=== PATIENT | male | born 1960 | race Caucasian/White ===

== ENCOUNTER → 2021-03-29 10:37 | Outpatient (BNVA) | payer OTHER, SELFPAY | PROVIDERS: PCP Internal Medicine; Visit Provider Hospitalist ==

== ENCOUNTER → 2022-04-03 08:08 | Outpatient (BNVA) | payer OTHER, SELFPAY | PROVIDERS: PCP Internal Medicine; Visit Provider Hospitalist | DX: J96.10 Chronic respiratory failure, unspecified whether with hypoxia or hypercapnia (principal); I50.9 Heart failure, unspecified; G47.33 Obstructive sleep apnea (adult) (pediatric); J96.11 Chronic respiratory failure with hypoxia; F17.200 Nicotine dependence, unspecified, uncomplicated; J41.0 Simple chronic bronchitis | CPT/HCPCS: 94618 ==

== ENCOUNTER → 2022-04-19 15:24 | Outpatient (BNVA) | payer OTHER, SELFPAY | PROVIDERS: PCP Internal Medicine; Visit Provider Internal Medicine Cardiovascular Disease | DX: Z13.89 Encounter for screening for other disorder (principal) ==

== ENCOUNTER → 2022-07-02 12:49 | Outpatient (BNVA) | payer OTHER, SELFPAY | PROVIDERS: PCP Internal Medicine; Referring Provider Internal Medicine; Visit Provider Internal Medicine Cardiovascular Disease | DX: I48.91 Unspecified atrial fibrillation (principal); I50.9 Heart failure, unspecified | CPT/HCPCS: 93005 ==

== ENCOUNTER → 2022-07-23 09:38 | Outpatient (BNVA) | payer OTHER, SELFPAY | PROVIDERS: PCP Internal Medicine; Visit Provider Hospitalist | DX: Z13.89 Encounter for screening for other disorder (principal) ==

== ENCOUNTER → 2022-10-22 10:21 | Outpatient (BNVA) | payer OTHER, SELFPAY | PROVIDERS: PCP Internal Medicine; Visit Provider Hospitalist ==

== ENCOUNTER 2023-05-17 08:40 | Outpatient (AMB) | payer SELFPAY ==
[2023-05-17 08:45] VITALS: BP 134/78; PULSE 97; O2SAT 95; BMI 50.2
--- NOTE | 2023-05-17 08:45 | A.OFFVIS_ITS ---
Intake Vital Signs 05/17/23 08:45 Height 6 ft 3 in Weight 402 lb BMI 50.2 BP 134/78 Blood Pressure Location Lt brachial Position Sitting Pulse 97 Pulse Source Pulse Oximeter Pulse Oximetry (%) 95 Oxygen Delivery Method Room Air Intake Visit Reasons: Obstructive sleep apnea Accompanied by: Spouse Allergies No Known Allergies Allergy (Verified 05/17/23 08:45) HPI HPI Comments History of Present Illness Details ? The patient is a 63-year-old man with a known history of COPD tobacco dependency and obstructive sleep apnea. He has been using his BiPAP which is set at right now 11/02. The BiPAP therapy does not appear to be working for him well. Initially when he puts it on he does not feel like he is getting enough pressure. Also, he had been using oxygen along with the BiPAP because of hypoxia and for some reason is concentrated has not been working. More recently started developing some issues with worsening cough and shortness of breath. 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 Currently is wearing a Holter monitor. He has been having more shortness of breath moderate severity. Even come in short distances he needs to take a break. He still smoking unfortunately. Sometimes she smokes about 1-2 packs a day. We talked about smoking cessation and possibly switching over to a nicotine alternative. He is willing to try the Nicotrol inhaler at this time. He can start by alternating and hopefully weaning off the cigarettes. He understands the harms at the cigarettes a doing to his heart and lungs at this time. He we did look at the BiPAP. The download demonstrates that his AHI down to 0.6. He has been using more than 7 hours a night. The therapy has been affecting beneficial. I had to come off the ramp because does was causing the problems. Will have to perform an overnight oximetry once he goes back in the oxygen and while on the BiPAP to make sure he is getting adequate oxygenation. In addition to that he did go for 6 minutes walk test any did desaturate down to 86% on room air. He was then placed on 2 L nasal cannula improving his pulse ox to 95% at rest and 94% with activity. He is agreeable to start oxygen supplementation with activity and will continue using the oxygen supplementation at nighttime. 07/23/2022 the patient is here for pulmonary follow-up visit. He is doing a lot better. The patient did follow-up with cardiology several weeks ago and was found to have AFib with rapid ventricular response and congestive heart failure. The patient refused to go to the ER. However, after having that awakening the patient realized that he needs to take his medications as prescribed. He has been taking his diuretic in his rate controlling any agent. He is also using his oxygen. He is using his noninvasive ventilator. Overall he is in a better state of health. He still has a lot of work to do but overall reassuring. Today's vital signs were stable. He is comfortable on room air. The patient does continue to use oxygen while sleeping on the noninvasive ventilator. He also start using the Eliquis as prescribed which is reassuring as well. He does have a colonoscopy scheduled for sometime in October. He may have to come in September for a preop evaluation. 10/22/2022 the patient is here for preoperative evaluation. The patient was in her usual state health until recently when to [place] to camp with cam for her unfortunate that is when the significant bad air quality from cannula that was taking place in therefore he was exposed significant bad air quality and pollution resulting worsening shortness of breath and wheezing. 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 [place] started developing some sinus pressure buildup and congestion. He went to see primary care doctor placed on prednisone and antibiotics for appeared to be sinusitis. He initially felt a little better but now worsening up again. Now the patient is scheduled to undergo a colonoscopy in a couple weeks. Will go ahead and treat him again for sinusitis to try to clear up any residual issues. In the meantime his respiratory status is stable. He is responding well to the current medications. As far as his chronic respiratory failure he has been tolerating the noninvasive ventilator very well. He does use it every night. The patient is scheduled for colonoscopy. He is wondering about the risks and benefits. At this point the patient has not had a colonosco py yet in therefore, will be important to do so. This is a good window since the patient overall is doing better from a respiratory status. Therefore, the patient should continue with the plans for screening colonoscopy. He does have increased risk for perioperative or prior procedure pulmonary complications which includes, hypoxia, atelectasis, pneumonia. To bed is decreased perioperative risk from a pulmonary standpoint would recommend using propofol for deep sedation and using an LMA for airway protection. Would avoid general anesthesia and intubation if possible. The patient should also have end-tidal CO2 monitoring at all times. 05/17/2023 the patient is here for pulmonary follow-up visit. Overall the patient has been doing better. He has been using his noninvasive ventilator at nighttime with 4.5 L of oxygen. The therapy has been affecting beneficial. Recently he got updated machine. In addition to that he continues with respiratory therapy. Has not required any prednisone. Typically does not have to use his rescue inhaler more than twice a week. Now is working on weight loss. He is looking at medical weight loss with injectables. I did provide him a letter about the importance of helping him with his weight loss as it would improve his respiratory condition. The patient also was told that he had elevated red blood cell count. He may have some secondary polycythemia secondary to his hypoxia. Therefore, will go ahead and have him get an overnight oximetry while on his on IV on 4.5 L to see if this is adequate oxygen. He is going to have a follow-up with Hematology to further address the polycythemia. [facility] Medical History CHF (congestive heart failure) Chronic respiratory failure COPD (chronic obstructive pulmonary disease) PORTILLO (obstructive sleep apnea) Tobacco dependence Social History Patient Tobacco Use Status: Current everyday Tobacco user Tobacco use type: Cigarette Years Smoked: 20 years Review of Systems Const Denies night sweats, Denies snoring, Denies stops breathing during sleep and Reports weight loss ENT Denies change in voice, Denies lip swelling, Denies mouth pain, Reports nasal congestion, Reports nasal discharge, Reports nasal obstruction, Reports post nasal drip, Reports sinus pressure and Denies tongue swelling Card Denies chest pain, Denies palpitations, Denies dyspnea and Reports dyspnea on exertion Resp Reports cough, Denies dyspnea, Reports dyspnea on exertion and Denies snoring GI Denies abdominal pain Musc Denies no additional complaints Neuro Denies Neuro-related abnormal movements Psych Denies no additional complaints Endo Denies palpitations Tank/Lymph Denies easy bleeding and Denies lymphadenopathy Aller/Immun Denies lip swelling and Denies tongue swelling Physical Exam Vital Signs: Last Vital Signs Pulse 97 05/17/23 08:45 BP 134/78 05/17/23 08:45 Pulse Ox 95 05/17/23 08:45 Oxygen Delivery Method Room Air 05/17/23 08:45 BMI result Body Mass Index 50.2 Const General: alert HEENT General nose exam: Abnormal mucous membranes and turbinates present erythematous, Nasal discharge present and no epistaxis Neck Neck: Yes normal visual inspection, Yes full ROM and Yes no lymphadenopathy Chest Chest palpation & inspection: normal inspection of the chest Resp Effort & Inspection: normal respiratory effort Auscultation: no crackles and diminished lung sounds Cardio Rate: regular rate Rhythm: regular rhythm Heart sounds: S1 normal heart sound present and S2 normal heart sound present GI Palpation (GI): Soft to palpation and nontender Auscultation: normal bowel sounds Skin General skin exam: rashes and/or lesions noted Assessment & Plan Assessment & Plan (1) PORTILLO (obstructive sleep apnea): Code(s): G47.33 - Obstructive sleep apnea (adult) (pediatric) (2) Chronic respiratory failure: Code(s): J96.10 - Chronic respiratory failure, unspecified whether with hypoxia or hypercapnia Qualifiers: Respiratory failure complication: hypoxia Qualified Code(s): J96.11 - Chronic respiratory failure with hypoxia (3) Tobacco dependence: Code(s): F17.200 - Nicotine dependence, unspecified, uncomplicated (4) COPD (chronic obstructive pulmonary disease): Code(s): J44.9 - Chronic obstructive pulmonary disease, unspecified Qualifiers: COPD type: chronic bronchitis Chronic bronchitis type: simple Qualified Code(s): J41.0 - Simple chronic bronchitis (5) CHF (congestive heart failure): Code(s): I50.9 - Heart failure, unspecified Qualifiers: Heart failure type: unspecified Heart failure chronicity: chronic Qualified Code(s): I50.9 - Heart failure, unspecified Plan continue diuresis as tolerated Continue NIV with 4.5L oxygen Requesting overnight oximetry on the current above setting continue Trelegy DONNY as needed rate control continue eliquis BID weight management F/U 6 months Orders: Orders Overnight Pulse Oximetry Today J96.10 - Chronic respiratory failure, unspecified whether with hypoxia or hypercapnia Quality Reporting (2019) Adult ([facility] 138/06/20/68) Smoking risk assessment performed?: Yes Patient Tobacco Use Status: Current everyday Tobacco user Coding Level of Care Code Est Pt Level 4 (77448) Diagnoses PORTILLO (obstructive sleep apnea) G47.33 Chronic respiratory failure with hypoxia J96.11 Respiratory failure complication: hypoxia Tobacco dependence F17.200 Simple chronic bronchitis J41.0 COPD type: chronic bronchitis Chronic bronchitis type: simple Chronic congestive heart failure, unspecified heart failure type I50.9 Heart failure type: unspecified Heart failure chronicity: chronic Time Spent (min) 18
== END 2023-05-17 09:13 | disposition home or self-care (01) ==
PROVIDERS: PCP Internal Medicine; Visit Provider Hospitalist
DX: G47.33 Obstructive sleep apnea (adult) (pediatric) (principal); J96.11 Chronic respiratory failure with hypoxia; F17.200 Nicotine dependence, unspecified, uncomplicated; J41.0 Simple chronic bronchitis; I50.9 Heart failure, unspecified
CPT/HCPCS: 99214

== ENCOUNTER → 2023-05-17 08:40 | Outpatient (BNVA) | payer OTHER, SELFPAY | PROVIDERS: PCP Internal Medicine; Visit Provider Hospitalist ==

== ENCOUNTER 2023-11-18 08:18 | Outpatient (AMB) | payer OTHER, SELFPAY ==
--- NOTE | 2023-11-18 08:20 | MHC.OFFVIS ---
Vital Signs 11/18/23 08:22 Height 6 ft 3 in Weight 372 lb BMI 46.5 Pulse 90 Pulse Source Pulse Oximeter Pulse Oximetry (%) 93 Oxygen Delivery Method Room Air Intake Visit Reasons: Obstructive sleep apnea Allergies No Known Allergies Allergy (Verified 11/18/23 08:23) HPI Comments Details: ? The patient is a 63-year-old man with a known history of COPD tobacco dependency and obstructive sleep apnea. He has been using his BiPAP which is set at right now 11/02. The BiPAP therapy does not appear to be working for him well. Initially when he puts it on he does not feel like he is getting enough pressure. Also, he had been using oxygen along with the BiPAP because of hypoxia and for some reason is concentrated has not been working. More recently started developing some issues with worsening cough and shortness of breath. 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 Currently is wearing a Holter monitor. He has been having more shortness of breath moderate severity. Even come in short distances he needs to take a break. He still smoking unfortunately. Sometimes she smokes about 1-2 packs a day. We talked about smoking cessation and possibly switching over to a nicotine alternative. He is willing to try the Nicotrol inhaler at this time. He can start by alternating and hopefully weaning off the cigarettes. He understands the harms at the cigarettes a doing to his heart and lungs at this time. He we did look at the BiPAP. The download demonstrates that his AHI down to 0.6. He has been using more than 7 hours a night. The therapy has been affecting beneficial. I had to come off the ramp because does was causing the problems. Will have to perform an overnight oximetry once he goes back in the oxygen and while on the BiPAP to make sure he is getting adequate oxygenation. In addition to that he did go for 6 minutes walk test any did desaturate down to 86% on room air. He was then placed on 2 L nasal cannula improving his pulse ox to 95% at rest and 94% with activity. He is agreeable to start oxygen supplementation with activity and will continue using the oxygen supplementation at nighttime. 07/23/2022 the patient is here for pulmonary follow-up visit. He is doing a lot better. The patient did follow-up with cardiology several weeks ago and was found to have AFib with rapid ventricular response and congestive heart failure. The patient refused to go to the ER. However, after having that awakening the patient realized that he needs to take his medications as prescribed. He has been taking his diuretic in his rate controlling any agent. He is also using his oxygen. He is using his noninvasive ventilator. Overall he is in a better state of health. He still has a lot of work to do but overall reassuring. Today's vital signs were stable. He is comfortable on room air. The patient does continue to use oxygen while sleeping on the noninvasive ventilator. He also start using the Eliquis as prescribed which is reassuring as well. He does have a colonoscopy scheduled for sometime in October. He may have to come in September for a preop evaluation. 10/22/2022 the patient is here for preoperative evaluation. The patient was in her usual state health until recently when to [place] to camp with cam for her unfortunate that is when the significant bad air quality from cannula that was taking place in therefore he was exposed significant bad air quality and pollution resulting worsening shortness of breath and wheezing. 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 [place] he started developing some sinus pressure buildup and congestion. He went to see primary care doctor placed on prednisone and antibiotics for appeared to be sinusitis. He initially felt a little better but now worsening up again. Now the patient is scheduled to undergo a colonoscopy in a couple weeks. Will go ahead and treat him again for sinusitis to try to clear up any residual issues. In the meantime his respiratory status is stable. He is responding well to the current medications. As far as his chronic respiratory failure he has been tolerating the noninvasive ventilator very well. He does use it every night. The patient is scheduled for colonoscopy. He is wondering about the risks and benefits. At this point the patient has not had a colonoscopy yet in therefore, will be important to do so. This is a good window since the patient overall is doing better from a respiratory status. Therefore, the patient should continue with the plans for screening colonoscopy. He does have increased risk for perioperative or prior procedure pulmonary complications which includes, hypoxia, atelectasis, pneumonia. To bed is decreased perioperative risk from a pulmonary standpoint would recommend using propofol for deep sedation and using an LMA for airway protection. Would avoid general anesthesia and intubation if possible. The patient should also have end-tidal CO2 monitoring at all times. 05/17/2023 the patient is here for pulmonary follow-up visit. Overall the patient has been doing better. He has been using his noninvasive ventilator at nighttime with 4.5 L of oxygen. The therapy has been affecting beneficial. Recently he got updated machine. In addition to that he continues with respiratory therapy. Has not required any prednisone. Typically does not have to use his rescue inhaler more than twice a week. Now is working on weight loss. He is looking at medical weight loss with injectables. I did provide him a letter about the importance of helping him with his weight loss as it would improve his respiratory condition. The patient also was told that he had elevated red blood cell count. He may have some secondary polycythemia secondary to his hypoxia. Therefore, will go ahead and have him get an overnight oximetry while on his on IV on 4.5 L to see if this is adequate oxygen. He is going to have a follow-up with Hematology to further address the polycythemia. 11/18/2023 the patient is here for a pulmonary follow-up visit. Patient better. The patient has been working on weight loss. He is motivated at this time. In the meantime unfortunately continues to smoke cigarettes. Smoking about 2 packs a day. The patient did talk to the primary care doctor in this point he is agreeable to taking part in the lung cancer screening program. Therefore will make a referral at this time. As far as his sleep he does use a noninvasive ventilator with good effect. He continues use the oxygen good effect as well. His mask and his supplies a arriving regularly through his [employer]. He is motivated in quitting. He is also going to try using the current gum for withdrawal symptoms. [facility] Medical History CHF (congestive heart failure) Chronic respiratory failure COPD (chronic obstructive pulmonary disease) PORTILLO (obstructive sleep apnea) Tobacco dependence Social History Patient Tobacco Use Status: Current everyday Tobacco user Tobacco use type: Cigarette Years Smoked: 20 years Review of Systems Const Denies night sweats, Denies snoring, Denies stops breathing during sleep and Reports weight loss ENT Denies change in voice, Denies lip swelling, Denies mouth pain, Reports nasal congestion, Reports nasal discharge, Reports post nasal drip and Denies tongue swelling Card Denies chest pain, Denies palpitations, Denies dyspnea and Reports dyspnea on exertion Resp Reports cough, Denies dyspnea, Reports dyspnea on exertion and Denies snoring GI Denies abdominal pain Musc Denies no additional complaints Neuro Denies Neuro-related abnormal movements Psych Denies no additional complaints Endo Denies palpitations Tank/Lymph Denies easy bleeding and Denies lymphadenopathy Aller/Immun Denies lip swelling and Denies tongue swelling Physical Exam Vital Signs: Last Vital Signs Pulse 90 11/18/23 08:22 Pulse Ox 93 11/18/23 08:22 Oxygen Delivery Method Room Air 11/18/23 08:22 BMI result Body Mass Index 46.5 Const General: alert HEENT General nose exam: Abnormal mucous membranes and turbinates present erythematous, Nasal discharge present and no epistaxis Neck Neck: Yes normal visual inspection, Yes full ROM and Yes no lymphadenopathy Chest Chest palpation & inspection: normal inspection of the chest Resp Effort & Inspection: normal respiratory effort Auscultation: no crackles and diminished lung sounds Cardio Rate: regular rate Rhythm: regular rhythm Heart sounds: S1 normal heart sound present and S2 normal heart sound present GI Palpation (GI): Soft to palpation and nontender Auscultation: normal bowel sounds Skin General skin exam: rashes and/or lesions noted Extrem General: Yes edema Quality Reporting (2019) Adult ([facility] ) Smoking risk assessment performed?: Yes Patient Tobacco Use Status: Current everyday Tobacco user Assessment & Plan Assessment & Plan (1) PORTILLO (obstructive sleep apnea): Code(s): G47.33 - Obstructive sleep apnea (adult) (pediatric) Category: Medical (2) Chronic respiratory failure: Code(s): J96.10 - Chronic respiratory failure, unspecified whether with hypoxia or hypercapnia Category: Medical Qualifiers: Respiratory failure complication: hypoxia Qualified Code(s): J96.11 - Chronic respiratory failure with hypoxia (3) Tobacco dependence: Code(s): F17.200 - Nicotine dependence, unspecified, uncomplicated Category: Medical (4) COPD (chronic obstructive pulmonary disease): Code(s): J44.9 - Chronic obstructive pulmonary disease, unspecified Category: Medical Qualifiers: COPD type: chronic bronchitis Chronic bronchitis type: simple Qualified Code(s): J41.0 - Simple chronic bronchitis (5) CHF (congestive heart failure): Code(s): I50.9 - Heart failure, unspecified Category: Medical Qualifiers: Heart failure chronicity: chronic Heart failure type: unspecified Qualified Code(s): I50.9 - Heart failure, unspecified Plan continue diuresis as tolerated Continue NIV with 4.5L oxygen, JL continue Trelegy DONNY as needed weight management referral to [facility] Tobacco cessation: nicorette gum F/U 6 months Orders: Referrals Lung Cancer Screening Referral F17.200 - Nicotine dependence, unspecified, uncomplicated Medications: New nicotine (polacrilex) (Nicorette) 4 mg buccal Q4H PRN 100 ea 7RF nicotine cravings 30 days Coding Level of Care Code Est Pt Level 4 (93599) Diagnoses PORTILLO (obstructive sleep apnea) G47.33 Chronic respiratory failure with hypoxia J96.11 Respiratory failure complication: hypoxia Tobacco dependence F17.200 Simple chronic bronchitis J41.0 COPD type: chronic bronchitis Chronic bronchitis type: simple Chronic congestive heart failure, unspecified heart failure type I50.9 Heart failure chronicity: chronic Heart failure type: unspecified Time Spent (min) 16
[2023-11-18 08:22] VITALS: PULSE 90; O2SAT 93; BMI 46.5
== END 2023-11-18 08:42 | disposition home or self-care (01) ==
PROVIDERS: PCP Internal Medicine; Visit Provider Hospitalist
DX: G47.33 Obstructive sleep apnea (adult) (pediatric) (principal); J96.11 Chronic respiratory failure with hypoxia; F17.200 Nicotine dependence, unspecified, uncomplicated; J41.0 Simple chronic bronchitis; I50.9 Heart failure, unspecified
CPT/HCPCS: 99214

== ENCOUNTER → 2023-11-18 08:18 | Outpatient (BNVA) | payer OTHER, SELFPAY | PROVIDERS: PCP Internal Medicine; Visit Provider Hospitalist ==

== ENCOUNTER 2023-12-27 09:33 | Outpatient (AMB) | payer OTHER, SELFPAY ==
--- NOTE | 2023-12-27 07:54 | A.OFFVIS_ITS ---
Intake Visit Reasons: Current Smoker Allergies No Known Allergies Allergy (Verified 11/18/23 08:23) HPI HPI Current Smoker: Details: Initial visit for this 63yo smoker with a 50+PYH. Patient has been smoking since age 16 for 47 years at 1-1.5ppd. . Denies marijuana use. Denies second hand smoke exposure. 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 . Denies known family history of lung cancer. Denies personal history of cancers. Denies chest CT in last year. . Denies recent travel outside the [place]. Denies recent respiratory illness or recent hospitalization for respiratory issues. Reports testing positive for COVID. Admits receiving COVID Vaccine. x2. . Denies fever, chills, new/worsening cough, hemoptysis, hoarseness or dysphagia. Denies significant chest pain, significant dyspnea or unintentional weight loss. Patient Lung Cancer Screening Questionnaire reviewed with patient by provider. . Shared Decision Making Completed. Patient meets criteria. Discussed in detail with patient, the risk vs benefit of LDCT screening. Patient consents to proceed with scan. Discussed smoking cessation. [facility] Medical History (Updated 12/27/23 @ 09:37 by Kaitlyn Pablo PA-C) Atrial fibrillation with rapid ventricular response CHF (congestive heart failure) Chronic respiratory failure COPD (chronic obstructive pulmonary disease) PORTILLO (obstructive sleep apnea) Nicotine dependence, cigarettes, uncomplicated Morbid obesity Surgical History (Updated 12/27/23 @ 09:40 by Kaitlyn Pablo PA-C) History of lithotripsy History of removal of laparoscopic gastric banding device History of tonsillectomy Social History (Updated 12/27/23 @ 09:37 by Kaitlyn Pablo PA-C) Patient Tobacco Use Status: Current everyday Tobacco user Tobacco use type: Cigarette Years Smoked: (onset 16yo, 1-1.5ppd x 47yrs, 50+PYH) Quality Reporting (2019) Adult (CMS 138/06/20/68) Smoking risk assessment performed?: Yes Patient Tobacco Use Status: Current everyday Tobacco user Assessment & Plan Assessment & Plan (1) Nicotine dependence, cigarettes, uncomplicated: Comment: (onset 16yo, 1-1.5ppd x 47yrs, 50+PYH) Code(s): F17.210 - Nicotine dependence, cigarettes, uncomplicated Category: Medical Plan: - SDM visit completed today in office. - Patient meets criteria for LDCT for lung cancer screening purposes and is asymptomatic. - Smoking cessation counseling offered. Patients can always call [phone]. - Will arrange for a LDCT scan of the chest for screening purposes at [facility]. - Risks, benefits, and alternatives were discussed in detail and the patient agrees to proceed. - Risks discussed include but are not limited to: radiation exposure, anxiety during testing and while awaiting results, false negatives, false positives and possibility of additional intervention such as further imaging or surgical procedures for benign disease. - Benefits are obviously detection of lung cancer at an early stage which can lead to improved outcomes. - Discussed the importance of screening program compliance with adherence to yearly LDCT scan as scheduled - or sooner interval scans for personalized screening regimen. - Discussed follow up plan. Our office will send a letter discussing results and if needed set up phone call and office visit based on CT findings. - Patient educated on results categorization and the management decisions for suspicious findings potentially found on the screening LDCT scan. Any patient with a Lung RADS score of 3 or 4 will be reviewed by a multidisciplinary team at [facility] to form a plan of action in regards to scan findings. - If further work up is warranted for a suspicious lung finding this will be followed by the Lung Cancer Screening program in conjunction with the Thoracic Surgery Department at [facility]. - A copy of the office note and LDCT will be sent to the patient's PCP - as well as documentation on any associated further plans of care. - Incidental findings on LDCT are the PCP's responsibility. These findings are indicated with an S finding on the LDCT Assessment. A note discussing the findings will be sent to the PCP who is then responsible for further management. - All questions answered.? Coding Level of Care Code Lung Cancer Screening G0296 Diagnoses Nicotine dependence, cigarettes, uncomplicated F17.210
== END 2023-12-27 09:43 | disposition home or self-care (01) ==
PROVIDERS: PCP Internal Medicine; Referring Provider Hospitalist; Visit Provider Physician Assistant Medical
DX: F17.210 Nicotine dependence, cigarettes, uncomplicated (principal)
CPT/HCPCS: G0296

== ENCOUNTER 2023-12-27 09:45 | Outpatient (REF) | payer OTHER, SELFPAY ==
--- NOTE | ~2023-12-27 | CT_ITS ---
EXAMINATION: CT LOW-DOSE SCREENING CHEST WITHOUT CONTRAST CLINICAL INFORMATION: Nicotine dependence, cigarettes, uncomplicated. The patient is a current smoker with a 98 pack-year history of smoking. COMPARISON: None available. TECHNIQUE: Multidetector volumetric CT imaging of the chest is performed on a Siemens SOMATOM Definition scanner without contrast using low dose technique. Additional 2D coronal and sagittal reformatted images and axial 3D maximum intensity projection (MIP) images are generated on the CT workstation. This CT examination was performed using dose optimization techniques as appropriate, variously including the following: *Automated exposure control *Adjustment of mA and/or kV according to patient size (this includes techniques or standardized protocols for targeted exams where dose is matched to indication/reason for exam; i.e. extremities or head) *Use of iterative reconstruction technique TOTAL EXAM DLP: 131 mGy-cm. CTDIvol: 3.81 mGy. FINDINGS: PULMONARY NODULES: No suspicious pulmonary nodules. LUNGS: Lungs bilaterally symmetrically expanded. Emphysema is present with a saber-sheath trachea. There is mild bronchial thickening without bronchiectasis. Bibasilar atelectasis is seen, right greater than left. No effusion or pneumothorax. Central airways patent. MEDIASTINUM: No mediastinal, hilar or axillary adenopathy or free fluid collection. CORONARY ARTERY CALCIFICATION: Severe. THYROID GLAND: Unremarkable to the extent seen. CARDIOVASCULAR STRUCTURES: There is mild cardiomegaly. No aortic aneurysm. Trace pericardial effusion. CHEST WALL/AXILLA: Unremarkable. UPPER ABDOMEN: Included portions of the solid organs in the upper abdomen unremarkable on noncontrast imaging. OSSEOUS STRUCTURES: No suspicious focal findings. Scoliosis with degenerative changes in the spine. CT/CT lung screening IMPRESSION: No findings seen suspicious for malignancy. ASSESSMENT: 1. Lung-RADS Category 1: Negative. There are no nodules or there are definitely benign nodules. N/A 2. Lung-RADS Category S: Negative. There are no clinically significant or potentially clinically significant findings not related to the lungs requiring urgent additional evaluation. RECOMMENDATION: Continued routine annual low-dose CT lung screening in 1 year is recommended. An order for CT CHEST LOW DOSE CANCER SCREENING ([id number]) can be placed. Electronically signed by: Jerardo Jensen MD 01/22/2024 12:37 PM EDT
== END 2023-12-27 09:46 | disposition home or self-care (01) ==
LOC: HO.CT 09:45
PROVIDERS: PCP Internal Medicine; Visit Provider Physician Assistant Medical
DX: Z12.2 Encounter for screening for malignant neoplasm of respiratory organs (principal); F17.210 Nicotine dependence, cigarettes, uncomplicated
CPT/HCPCS: 71271; G0296

== ENCOUNTER 2024-05-26 08:27 | Outpatient (AMB) | payer OTHER, SELFPAY ==
--- NOTE | 2024-05-26 08:29 | MHC.OFFVIS ---
Vital Signs 05/26/24 08:30 Height 6 ft 3 in Weight 364 lb 13.84 oz BMI 45.6 BP 130/88 Blood Pressure Location Rt brachial Position Sitting Pulse 72 Pulse Source Pulse Oximeter Pulse Oximetry (%) 96 Oxygen Delivery Method Room Air Intake Visit Reasons: Obstructive sleep apnea Allergies No Known Allergies Allergy (Verified 05/26/24 08:33) HPI Comments Details: ? The patient is a 64-year-old man with a known history of COPD tobacco dependency and obstructive sleep apnea. He has been using his BiPAP which is set at right now 11/02. The BiPAP therapy does not appear to be working for him well. Initially when he puts it on he does not feel like he is getting enough pressure. Also, he had been using oxygen along with the BiPAP because of hypoxia and for some reason is concentrated has not been working. More recently started developing some issues with worsening cough and shortness of breath. He was evaluated by his doctor and also patient access specialist found to have an it regular tachyarrhythmia. Currently is wearing a Holter monitor. He has been having more shortness of breath moderate severity. Even come in short distances he needs to take a break. He still smoking unfortunately. Sometimes she smokes about 1-2 packs a day. We talked about smoking cessation and possibly switching over to a nicotine alternative. He is willing to try the Nicotrol inhaler at this time. He can start by alternating and hopefully weaning off the cigarettes. He understands the harms at the cigarettes a doing to his heart and lungs at this time. He we did look at the BiPAP. The download demonstrates that his AHI down to 0.6. He has been using more than 7 hours a night. The therapy has been affecting beneficial. I had to come off the ramp because does was causing the problems. Will have to perform an overnight oximetry once he goes back in the oxygen and while on the BiPAP to make sure he is getting adequate oxygenation. In addition to that he did go for 6 minutes walk test any did desaturate down to 86% on room air. He was then placed on 2 L nasal cannula improving his pulse ox to 95% at rest and 94% with activity. He is agreeable to start oxygen supplementation with activity and will continue using the oxygen supplementation at nighttime. 07/23/2022 the patient is here for pulmonary follow-up visit. He is doing a lot better. The patient did follow-up with cardiology several weeks ago and was found to have AFib with rapid ventricular response and congestive heart failure. The patient refused to go to the ER. However, after having that awakening the patient realized that he needs to take his medications as prescribed. He has been taking his diuretic in his rate controlling any agent. He is also using his oxygen. He is using his noninvasive ventilator. Overall he is in a better state of health. He still has a lot of work to do but overall reassuring. Today's vital signs were stable. He is comfortable on room air. The patient does continue to use oxygen while sleeping on the noninvasive ventilator. He also start using the Eliquis as prescribed which is reassuring as well. He does have a colonoscopy scheduled for sometime in October. He may have to come in September for a preop evaluation. 10/22/2022 the patient is here for preoperative evaluation. The patient was in her usual state health until recently when to [place] to camp with cam for her unfortunate that is when the significant bad air quality from cannula that was taking place in therefore he was exposed significant bad air quality and pollution resulting worsening shortness of breath and wheezing. 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 [place] he started developing some sinus pressure buildup and congestion. He went to see primary care doctor placed on prednisone and antibiotics for appeared to be sinusitis. He initially felt a little better but now worsening up again. Now the patient is scheduled to undergo a colonoscopy in a couple weeks. Will go ahead and treat him again for sinusitis to try to clear up any residual issues. In the meantime his respiratory status is stable. He is responding well to the current medications. As far as his chronic respiratory failure he has been tolerating the noninvasive ventilator very well. He does use it every night. The patient is scheduled for colonoscopy. He is wondering about the risks and benefits. At this point the patient has not had a colonoscopy yet in therefore, will be important to do so. This is a good window since the patient overall is doing better from a respiratory status. Therefore, the patient should continue with the plans for screening colonoscopy. He does have increased risk for perioperative or prior procedure pulmonary complications which includes, hypoxia, atelectasis, pneumonia. To bed is decreased perioperative risk from a pulmonary standpoint would recommend using propofol for deep sedation and using an LMA for airway protection. Would avoid general anesthesia and intubation if possible. The patient should also have end-tidal CO2 monitoring at all times. 05/17/2023 the patient is here for pulmonary follow-up visit. Overall the patient has been doing better. He has been using his noninvasive ventilator at nighttime with 4.5 L of oxygen. The therapy has been affecting beneficial. Recently he got updated machine. In addition to that he continues with respiratory therapy. Has not required any prednisone. Typically does not have to use his rescue inhaler more than twice a week. Now is working on weight loss. He is looking at medical weight loss with injectables. I did provide him a letter about the importance of helping him with his weight loss as it would improve his respiratory condition. The patient also was told that he had elevated red blood cell count. He may have some secondary polycythemia secondary to his hypoxia. Therefore, will go ahead and have him get an overnight oximetry while on his on IV on 4.5 L to see if this is adequate oxygen. He is going to have a follow-up with Hematology to further address the polycythemia. 11/18/2023 the patient is here for a pulmonary follow-up visit. Patient better. The patient has been working on weight loss. He is motivated at this time. In the meantime unfortunately continues to smoke cigarettes. Smoking about 2 packs a day. The patient did talk to the primary care doctor in this point he is agreeable to taking part in the lung cancer screening program. Therefore will make a referral at this time. As far as his sleep he does use a noninvasive ventilator with good effect. He continues use the oxygen good effect as well. His mask and his supplies a arriving regularly through his [employer]. He is motivated in quitting. He is also going to try using the current gum for withdrawal symptoms. 05/26/2024 the patient is here for a pulmonary follow-up visit. Overall he is doing okay. Working on weight loss. He continues uses noninvasive ventilator with great effect. He continues on 5 L. He was told that he has significant polycythemia by his primary care. I do not have the results and follow me. But, the question is if could be secondary polycythemia from hypoxia. He is already on 5 L at nighttime with the noninvasive ventilator. I did download the data and appears that he has AHI 0.1 and that the pressures are adequate. Will have him get a blood gas today in addition to another hemoglobin check. Will have him get an overnight oximetry while on the noninvasive ventilator on 5 L. If he needs more he is going to need a higher flow concentrator delivered to his home. Unfortunately continues to smoke. Explained to him independent of the sleep apnea in the respiratory failure the fact that he is smoking is going to result in decrease oxygen diffusion. He did have a CT scans of the lung cancer screening program the last time in 12/17/2023 which I personally reviewed. He has some [id number] emphysema also has some scarring at the bases. He will continue to have the serial CT scans in view of his high risk from smoking. He does not want to try the patch again. He is contemplating hypnosis. I do believe that is a good option for him. In the meantime will follow-up in 6 months if any issues arise and will call for an earlier assessment. [facility] Medical History (Updated 12/27/23 @ 09:37 by Kaitlyn Pablo PA-C) Atrial fibrillation with rapid ventricular response CHF (congestive heart failure) Chronic respiratory failure COPD (chronic obstructive pulmonary disease) PORTILLO (obstructive sleep apnea) Nicotine dependence, cigarettes, uncomplicated Morbid obesity Surgical History (Updated 12/27/23 @ 09:40 by Kaitlyn Pablo PA-C) History of lithotripsy History of removal of laparoscopic gastric banding device History of tonsillectomy Social History (Updated 05/26/24 @ 08:33 by Tiffanie Mancera [facility]) Patient Tobacco Use Status: Current everyday Tobacco user Tobacco use type: Cigarette Cigarette Packs Per Day: 1.5 Cigarettes Per Day: 30 Years Smoked: (onset 16yo, 1-1.5ppd x 47yrs, 50+PYH) Review of Systems Const Denies night sweats, Denies snoring, Denies stops breathing during sleep and Reports weight loss ENT Denies change in voice, Denies lip swelling, Denies mouth pain, Reports nasal congestion, Reports nasal discharge, Reports post nasal drip and Denies tongue swelling Card Denies chest pain, Denies palpitations, Denies dyspnea and Reports dyspnea on exertion Resp Reports cough, Denies dyspnea, Reports dyspnea on exertion and Denies snoring GI Denies abdominal pain Musc Denies no additional complaints Neuro Denies Neuro-related abnormal movements Psych Denies no additional complaints Endo Denies palpitations Tank/Lymph Denies easy bleeding and Denies lymphadenopathy Aller/Immun Denies lip swelling and Denies tongue swelling Physical Exam Vital Signs: Last Vital Signs Pulse 72 05/26/24 08:30 BP 130/88 05/26/24 08:30 Pulse Ox 96 05/26/24 08:30 Oxygen Delivery Method Room Air 05/26/24 08:30 BMI result Body Mass Index 45.6 Const General: alert HEENT General nose exam: Abnormal mucous membranes and turbinates present erythematous, Nasal discharge present and no epistaxis Neck Neck: Yes normal visual inspection, Yes full ROM and Yes no lymphadenopathy Chest Chest palpation & inspection: normal inspection of the chest Resp Effort & Inspection: normal respiratory effort Auscultation: no crackles and diminished lung sounds Cardio Rate: regular rate Rhythm: regular rhythm Heart sounds: S1 normal heart sound present and S2 normal heart sound present GI Palpation (GI): Soft to palpation and nontender Auscultation: normal bowel sounds Skin General skin exam: rashes and/or lesions noted Extrem General: Yes edema Quality Reporting (2019) Adult ([facility] 138/06/20/68) Smoking risk assessment performed?: Yes Patient Tobacco Use Status: Current everyday Tobacco user Assessment & Plan Assessment & Plan (1) PORTILLO (obstructive sleep apnea): Comment: (CPAP/BiPAP) Code(s): G47.33 - Obstructive sleep apnea (adult) (pediatric) Category: Medical (2) Chronic respiratory failure: Code(s): J96.10 - Chronic respiratory failure, unspecified whether with hypoxia or hypercapnia Category: Medical Qualifiers: Respiratory failure complication: hypoxia Qualified Code(s): J96.11 - Chronic respiratory failure with hypoxia (3) Tobacco dependence: Code(s): F17.200 - Nicotine dependence, unspecified, uncomplicated Category: Medical (4) COPD (chronic obstructive pulmonary disease): Code(s): J44.9 - Chronic obstructive pulmonary disease, unspecified Category: Medical Qualifiers: COPD type: chronic bronchitis Chronic bronchitis type: simple Qualified Code(s): J41.0 - Simple chronic bronchitis (5) CHF (congestive heart failure): Code(s): I50.9 - Heart failure, unspecified Category: Medical Qualifiers: Heart failure chronicity: chronic Heart failure type: unspecified Qualified Code(s): I50.9 - Heart failure, unspecified Plan continue diuresis as tolerated Continue NIV with 5L oxygen, JL. requesting overnight oximetry to assess continue Trelegy DONNY as needed weight management LDCT 11/2024 Tobacco cessation: hypnosis Bloodwork, blood gas F/U 6 months Orders: Orders Complete Blood Count Auto Diff Today J41.0 - Simple chronic bronchitis, J96.11 - Chronic respiratory failure with hypoxia Basic Metabolic Panel Today J41.0 - Simple chronic bronchitis, J96.11 - Chronic respiratory failure with hypoxia Overnight Pulse Oximetry Today J41.0 - Simple chronic bronchitis Venous Blood Gas Today J41.0 - Simple chronic bronchitis, J96.11 - Chronic respiratory failure with hypoxia Erythrocyte Sedimentation Rate Today J41.0 - Simple chronic bronchitis, J96.11 - Chronic respiratory failure with hypoxia Coding Level of Care Code Est Pt Level 4 (60680) Complex EM visit Add On G2211 Diagnoses PORTILLO (obstructive sleep apnea) G47.33 Chronic respiratory failure with hypoxia J96.11 Respiratory failure complication: hypoxia Tobacco dependence F17.200 Simple chronic bronchitis J41.0 COPD type: chronic bronchitis Chronic bronchitis type: simple Chronic congestive heart failure, unspecified heart failure type I50.9 Heart failure chronicity: chronic Heart failure type: unspecified Time Spent (min) 17
[2024-05-26 08:30] VITALS: BP 130/88; PULSE 72; O2SAT 96; BMI 45.6
== END 2024-05-26 08:56 | disposition home or self-care (01) ==
PROVIDERS: PCP Internal Medicine; Visit Provider Hospitalist
DX: G47.33 Obstructive sleep apnea (adult) (pediatric) (principal); J96.11 Chronic respiratory failure with hypoxia; F17.200 Nicotine dependence, unspecified, uncomplicated; J41.0 Simple chronic bronchitis; I50.9 Heart failure, unspecified
CPT/HCPCS: 99214

== ENCOUNTER 2025-02-09 08:23 | Outpatient (AMB) | payer OTHER, SELFPAY ==
[2025-02-09 08:27] VITALS: BP 110/80; PULSE 95; O2SAT 94; BMI 42.8
--- NOTE | 2025-02-09 08:27 | A.OFFVIS_ITS ---
Vital Signs 02/09/25 08:27 Height 6 ft 3 in Weight 342 lb 13.101 oz BMI 42.8 BP 110/80 Blood Pressure Location Lt brachial Position Sitting Pulse 95 Pulse Source Pulse Oximeter Pulse Oximetry (%) 94 Oxygen Delivery Method Room Air Intake Visit Reasons: Obstructive sleep apnea Paint Specialist Required: No Accompanied by: Self / Same As Patient Allergies No Known Allergies Allergy (Verified 02/09/25 08:30) HPI Comments Details: ? The patient is a 64-year-old man with a known history of COPD tobacco dependency and obstructive sleep apnea. He has been using his BiPAP which is set at right now 11/02. The BiPAP therapy does not appear to be working for him well. Initially when he puts it on he does not feel like he is getting enough pressure. Also, he had been using oxygen along with the BiPAP because of hypoxia and for some reason is concentrated has not been working. More recently started developing some issues with worsening cough and shortness of breath. 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 Currently is wearing a Holter monitor. He has been having more shortness of breath moderate severity. Even come in short distances he needs to take a break. He still smoking unfortunately. Sometimes she smokes about 1-2 packs a day. We talked about smoking cessation and possibly switching over to a nicotine alternative. He is willing to try the Nicotrol inhaler at this time. He can start by alternating and hopefully weaning off the cigarettes. He understands the harms at the cigarettes a doing to his heart and lungs at this time. He we did look at the BiPAP. The download demonstrates that his AHI down to 0.6. He has been using more than 7 hours a night. The therapy has been affecting beneficial. I had to come off the ramp because does was causing the problems. Will have to perform an overnight oximetry once he goes back in the oxygen and while on the BiPAP to make sure he is getting adequate oxygenation. In addition to that he did go for 6 minutes walk test any did desaturate down to 86% on room air. He was then placed on 2 L nasal cannula improving his pulse ox to 95% at rest and 94% with activity. He is agreeable to start oxygen supplementation with activity and will continue using the oxygen supplementation at nighttime. 07/23/2022 the patient is here for pulmonary follow-up visit. He is doing a lot better. The patient did follow-up with cardiology several weeks ago and was found to have AFib with rapid ventricular response and congestive heart failure. The patient refused to go to the ER. However, after having that awakening the patient realized that he needs to take his medications as prescribed. He has been taking his diuretic in his rate controlling any agent. He is also using his oxygen. He is using his noninvasive ventilator. Overall he is in a better state of health. He still has a lot of work to do but overall reassuring. Today's vital signs were stable. He is comfortable on room air. The patient does continue to use oxygen while sleeping on the noninvasive ventilator. He also start using the Eliquis as prescribed which is reassuring as well. He does have a colonoscopy scheduled for sometime in October. He may have to come in September for a preop evaluation. 10/22/2022 the patient is here for preoperative evaluation. The patient was in her usual state health until recently when to [place] to camp with cam for her unfortunate that is when the significant bad air quality from cannula that was taking place in therefore he was exposed significant bad air quality and pollution resulting worsening shortness of breath and wheezing. 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 [place] started developing some sinus pressure buildup and congestion. He went to see primary care doctor placed on prednisone and antibiotics for appeared to be sinusitis. He initially felt a little better but now worsening up again. Now the patient is scheduled to undergo a colonoscopy in a couple weeks. Will go ahead and treat him again for sinusitis to try to clear up any residual issues. In the meantime his respiratory status is stable. He is responding well to the current medications. As far as his chronic respiratory failure he has been tolerating the noninvasive ventilator very well. He does use it every night. The patient is scheduled for colonoscopy. He is wondering about the risks and benefits. At this point the patient has not had a colonoscopy yet in therefore, will be important to do so. This is a good window since the patient overall is doing better from a respiratory status. Therefore, the patient should continue with the plans for screening colonoscopy. He does have increased risk for perioperative or prior procedure pulmonary complications which includes, hypoxia, atelectasis, pneumonia. To bed is decreased perioperative risk from a pulmonary standpoint would recommend using propofol for deep sedation and using an LMA for airway protection. Would avoid general anesthesia and intubation if possible. The patient should also have end-tidal CO2 monitoring at all times. 05/17/2023 the patient is here for pulmonary follow-up visit. Overall the patient has been doing better. He has been using his noninvasive ventilator at nighttime with 4.5 L of oxygen. The therapy has been affecting beneficial. Recently he got updated machine. In addition to that he continues with respiratory therapy. Has not required any prednisone. Typically does not have to use his rescue inhaler more than twice a week. Now is working on weight loss. He is looking at medical weight loss with injectables. I did provide him a letter about the importance of helping him with his weight loss as it would improve his respiratory condition. The patient also was told that he had elevated red blood cell count. He may have some secondary polycythemia secondary to his hypoxia. Therefore, will go ahead and have him get an overnight oximetry while on his on IV on 4.5 L to see if this is adequate oxygen. He is going to have a follow-up with Hematology to further address the polycythemia. 11/18/2023 the patient is here for a pulmonary follow-up visit. Patient better. The patient has been working on weight loss. He is motivated at this time. In the meantime unfortunately continues to smoke cigarettes. Smoking about 2 packs a day. The patient did talk to the primary care doctor in this point he is agreeable to taking part in the lung cancer screening program. Therefore will make a referral at this time. As far as his sleep he does use a noninvasive ventilator with good effect. He continues use the oxygen good effect as well. His mask and his supplies a arriving regularly through his [employer]. He i s motivated in quitting. He is also going to try using the current gum for withdrawal symptoms. 05/26/2024 the patient is here for a pulmonary follow-up visit. Overall he is doing okay. Working on weight loss. He continues uses noninvasive ventilator with great effect. He continues on 5 L. He was told that he has significant polycythemia by his primary care. I do not have the results and follow me. But, the question is if could be secondary polycythemia from hypoxia. He is already on 5 L at nighttime with the noninvasive ventilator. I did download the data and appears that he has AHI 0.1 and that the pressures are adequate. Will have him get a blood gas today in addition to another hemoglobin check. Will have him get an overnight oximetry while on the noninvasive ventilator on 5 L. If he needs more he is going to need a higher flow concentrator delivered to his home. Unfortunately continues to smoke. Explained to him independent of the sleep apnea in the respiratory failure the fact that he is smoking is going to result in decrease oxygen diffusion. He did have a CT scans of the lung cancer screening program the last time in 12/17/2023 which I personally reviewed. He has some [id number] emphysema also has some scarring at the bases. He will continue to have the serial CT scans in view of his high risk from smoking. He does not want to try the patch again. He is contemplating hypnosis. I do believe that is a good option for him. In the meantime will follow-up in 6 months if any issues arise and will call for an earlier assessment. 02/09/2025 the patient is here for pulmonary follow-up visit. Overall the patient has been doing well. He continues on the GLP and has lost significant amount of weight which is reassuring. He is more active. He continues uses respiratory inhalers. He has major complaint is chronic productive cough. Yellowish phlegm. Moderate severity. He has been using Mucinex with no significant improvement. The patient continues smoking though. He understands his chronic bronchitis from smoking. Will go ahead and start him on azithromycin 3 times a week to see if this helps. He can use up for 4 to 8 weeks. If he notices that he was getting improvement with the would like to continue it we can always continue as long as he gets an EKG. Otherwise we can also consider Daliresp as as an option. He understands though quitting smoking read the best option as it is causing him to have the significant mucus burden in his body just adjusting to it. 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 Therefore, the patient will continue with current respiratory therapy will try to limit the smoking and will continue with respiratory therapy and weight loss program. The patient is also using the noninvasive ventilator at nighttime. He has been affecting beneficial. He does use it for more than 4 hours a night. He is also use it with oxygen. The patient will go ahead and get a CT scan through the lung cancer screening program. Will follow-up in 6-8 months he has any issues prior to this she can always call for an earlier assessment. [facility] Medical History (Updated 12/27/23 @ 09:37 by Kaitlyn Pablo PA-C) Atrial fibrillation with rapid ventricular response CHF (congestive heart failure) Chronic respiratory failure COPD (chronic obstructive pulmonary disease) PORTILLO (obstructive sleep apnea) Nicotine dependence, cigarettes, uncomplicated Morbid obesity Surgical History (Updated 12/27/23 @ 09:40 by Kaitlyn Pablo PA-C) History of lithotripsy History of removal of laparoscopic gastric banding device History of tonsillectomy Social History Patient Tobacco Use Status: Current everyday Tobacco user Tobacco use type: Cigarette Cigarette Packs Per Day: 1.5 Cigarettes Per Day: 30 Years Smoked: (onset 16yo, 1-1.5ppd x 47yrs, 50+PYH) Review of Systems Const Denies night sweats, Denies snoring, Denies stops breathing during sleep and Reports weight loss ENT Denies change in voice, Denies lip swelling, Denies mouth pain, Reports nasal congestion, Reports nasal discharge, Reports post nasal drip and Denies tongue swelling Card Denies chest pain, Denies palpitations, Denies dyspnea and Reports dyspnea on exertion Resp Reports cough, Denies dyspnea, Reports dyspnea on exertion and Denies snoring GI Denies abdominal pain Musc Denies no additional complaints Neuro Denies Neuro-related abnormal movements Psych Denies no additional complaints Endo Denies palpitations Tank/Lymph Denies easy bleeding and Denies lymphadenopathy Aller/Immun Denies lip swelling and Denies tongue swelling Physical Exam Vital Signs: Last Vital Signs Pulse 95 02/09/25 08:27 BP 110/80 02/09/25 08:27 Pulse Ox 94 02/09/25 08:27 Oxygen Delivery Method Room Air 02/09/25 08:27 BMI result Body Mass Index 42.8 Const General: alert HEENT General nose exam: Abnormal mucous membranes and turbinates present erythematous, Nasal discharge present and no epistaxis Neck Neck: Yes normal visual inspection, Yes full ROM and Yes no lymphadenopathy Chest Chest palpation & inspection: normal inspection of the chest Resp Effort & Inspection: normal respiratory effort Auscultation: no crackles and diminished lung sounds Cardio Rate: regular rate Rhythm: regular rhythm Heart sounds: S1 normal heart sound present and S2 normal heart sound present GI Palpation (GI): Soft to palpation and nontender Auscultation: normal bowel sounds Skin General skin exam: rashes and/or lesions noted Extrem General: Yes edema Assessment & Plan Assessment & Plan (1) PORTILLO (obstructive sleep apnea): Comment: (CPAP/BiPAP) Code(s): G47.33 - Obstructive sleep apnea (adult) (pediatric) Category: Medical (2) Chronic respiratory failure: Code(s): J96.10 - Chronic respiratory failure, unspecified whether with hypoxia or hypercapnia Category: Medical Qualifiers: Respiratory failure complication: hypoxia Qualified Code(s): J96.11 - Chronic respiratory failure with hypoxia (3) Tobacco dependence: Code(s): F17.200 - Nicotine dependence, unspecified, uncomplicated Category: Medical (4) COPD (chronic obstructive pulmonary disease): Code(s): J44.9 - Chronic obstructive pulmonary disease, unspecified Category: Medical Qualifiers: COPD type: chronic bronchitis Chronic bronchitis type: simple Qualified Code(s): J41.0 - Simple chronic bronchitis (5) CHF (congestive heart failure): Code(s): I50.9 - Heart failure, unspecified Category: Medical Qualifiers: Heart failure chronicity: chronic Heart failure type: unspecified Qualified Code(s): I50.9 - Heart failure, unspecified Plan continue diuresis as tolerated Continue NIV with 5L oxygen, JL. continue Trelegy DONNY as needed start Azithromycin MWF x 4-8 weeks consider Daliresp weight management/ GLP1 LDCT 02/2025 Tobacco cessation: Needs to cut down Bloodwork, blood gas conisder FLU shot F/U 6-8 months Medications: New azithromycin Take 1 tablet on Saturday/Saturday/Saturday 250 mg PO 3XW 12 tabs 1RF 28 days K21.9 - Gastro-esophageal reflux disease without esophagitis Coding Level of Care Code Est Pt Level 4 (65359) Complex EM visit Add On G2211 Diagnoses PORTILLO (obstructive sleep apnea) G47.33 Chronic respiratory failure with hypoxia J96.11 Respiratory failure complication: hypoxia Tobacco dependence F17.200 Simple chronic bronchitis J41.0 COPD type: chronic bronchitis Chronic bronchitis type: simple Chronic congestive heart failure, unspecified heart failure type I50.9 Heart failure chronicity: chronic Heart failure type: unspecified Time Spent (min) 16
--- OUTSIDE RECORDS SUMMARY | 2025-02-09 08:41 | XMS_ITS | Encounter Summary ---
Author Organization [facility] Address [address] [place] [address] [place] [phone] Phone Care Team Providers Care Track Laborer Name Role Phone Erica Mas MD Primary Care Provider Polina Adam MD Unavailable Matthew Mensah Unavailable [phone] Encounter Details Date Type Department Care Team (Late st Contact Info) Description 01/11/2021 Procedure Pass [facility] [address] [place] [address] Social History Tobacco Use Types Packs/Day Years Used Date Smoking Tobacco: Every Day Cigarettes 2 45 Smokeless Tobacco: Never Alcohol Use Standard Drinks/Week Comments Yes 0 (1 standard drink = 0.6 oz pur e alcohol) Rarely Sex and Gender Information Value Date Recorded Sex Assigned at Male 01/11/2021 9:22 AM EDT Legal Sex Male 4:21 PM EST Gender Identity Male 01/11/2021 9:22 AM EDT Sexual Orientation Not on file documented as of this encounter Functional Status * Calculated C-SSRS Risk Score (Lifetime/Recent) Answer Date of Assessment Author No Risk Indicated 01/11/2021 9:21 AM EDT Francheska Torre RN * [place] Suicide Severity Rating Scale (Screener/Recent Self-Report) Question Answer Date of Assessment Author 1. Wish to be (Past 1 Month) No 021 9:21 AM EDT Francheska Torre RN 2. Non-Specific Active Suici heaven Thoughts (Past 1 Month) No 01/11/2021 9:21 AM EDT Francheska Torre RN 6. Suicidal Behavior (Lifetime) No 9:21 AM EDT Francheska Torre RN documented as of this encounter Plan of Treatment Not on file documented as of this encounter Visit Diagnoses Not on filedocumented in this encounter Additional Health Concerns Infection Onset Date Last Indicated Resolved Time CoV-Risk Comment:Per note documentation 01/11/2021 01/11/2021 10:53 AM EDT documented as of this encounter Care Teams Track Laborer Relationship Specialty Start Date End Date Erica Mas MD [address] [place] [id number] [email or web address] PCP - General Internal Medicine 06/16/19 Polina Adam MD [address] [address] Primary Oncologist Hematology and Oncology 04/19/23 Matthew Mensah MBBS [address] [address] [email or web address] Primary Oncologist Medical Oncology 06/16/24 documented as of this encounter Additional Source Comments The information contained in this document represents components of the legal health record. It is not the complete legal health record.[facility]
--- OUTSIDE RECORDS SUMMARY | 2025-02-09 08:41 | XMS_ITS | Encounter Summary ---
Author Organization [facility] Address [address] [place] [address] [place] [address] Phone Care Team Providers Care Clinical Psychologist Private Practice Name Role Phone Erica Mas MD Primary Care Provider Polina Adam MD Unavailable [phone] Matthew Mensah Unavailable [phone] Encounter Details Date Type Department Care Team (Late st Contact Info) Description 01/11/2021 Procedure Pass [place] Admitting Dept - Virtual Department [address] [place] [address] Social History Tobacco Use Types Packs/Day Years [...] 9:21 AM EDT Francheska Torre RN * [place] Suicide Severity Rating Scale (Screener/Recent Self-Report) Question [...] documented as of this encounter Care Teams Clinical Psychologist Private Practice Relationship Specialty Start Date End Date Erica Mas MD [address] [place] [phone] [email or web address] PCP - General Internal Medicine 06/16/19 Polina Adam MD [address] [address] Primary Oncologist Hematology and Oncology 04/19/23 Matthew Mensah MBBS [address] [address] [email or web address] Primary Oncologist Medical Oncology 06/16/24 documented as of this encounter Additional Source Comments The information contained in this document represents components of the legal health record. It is not the complete legal health record.[facility]
--- OUTSIDE RECORDS SUMMARY | 2025-02-09 08:41 | XMS_ITS | Encounter Summary ---
Author Organization [facility] Address [address] [facility] [address] [place] [address] Phone Care Team Providers Care Nuclear Auxiliary Operator Name Role Phone Erica Mas MD Primary Care Provider Polina Adam MD Unavailable Matthew Mensah Unavailable [phone] Reason for Referral * MRI/CAT Scan - Closed Specialty Diagnoses / Procedures Referred By Contac t Referred To Contact Diagnoses Dyspnea, unspecified type Procedures MCT (Mobile Cardiac Telemetry) Everton Mckenna DO Phone: tel: fax: [email or web address] Referral ID Status Reason Start Date Expiration Date Visits Re quested Visits Authorized [id number] Closed 06/24/2019 06/23/2020 1 1 Encounter Details Date Type Department Care Team (Latest Contact Info) Description 06/24/2019 Ancillary Orders [facility] [address] [facility] [address], [address] [place] [address] Everton Mckenna DO [address] [facility] [address] [place] [address] [phone] [email or web address] Dyspnea, unspecified type Social History Tobacco Use Types Packs/Day Years Used Date Smoking Tobacco: Every Day Cigarettes Smokeless Tobacco: Never Alcohol Use Standard Drinks/Week Comments Not Currently 0 (1 standard drink = 0.6 oz pur e alcohol) Sex and Gender Information Value Date Recorded Sex Assigned at Male 01/11/2021 9:22 AM EDT Legal Sex Male 4:21 PM EST Gender Identity Male 01/11/2021 9:22 AM EDT Sexual Orientation Not on file documented as of this encounter Plan of Treatment Scheduled Orders Name Type Priority Associated Diagnoses Orde r Schedule MCT (Mobile Cardiac Telemetry) Cardiac Monitors Routine Dyspnea, unspecified type Expected: 07/16/2019, Expires: 12/16/2019 documented as of this encounter Visit Diagnoses Diagnosis Dyspnea, unspecified type documented in this encounter Additional Health Concerns Infection Onset Date Last Indicated Resolved Time CoV-Risk Comment:Per note documentation 01/11/2021 01/11/2021 10:53 AM EDT documented as of this encounter Care Teams Nuclear Auxiliary Operator Relationship Specialty Start Date End Date Erica Mas MD [address] [place] [address] [email or web address] PCP - General Internal Medicine 06/16/19 Polina Adam MD [facility] [address] [address] Primary Oncologist Hematology and Oncology 04/19/23 Matthew Mensah MBBS [facility] [address] [address] [email or web address] Primary Oncologist Medical Oncology 06/16/24 documented as of this encounter Additional Source Comments The information contained in this document represents components of the legal health record. It is not the complete legal health record.[facility]
--- OUTSIDE RECORDS SUMMARY | 2025-02-09 08:41 | XMS_ITS | Encounter Summary ---
Author Organization [facility] Address [address] [place] [address] [place] [address] Phone Care Team Providers Care Textile Machinery Instructor Name Role Phone Erica Mas MD Primary Care Provider Polina Adam MD Unavailable [phone] Matthew Mensah Unavailable Encounter Details Date Type Department Care Team (Late st Contact Info) Description 06/29/2019 Ancillary Orders Virtual Department [address] [place] [address] Erica Mas MD [address] [place] [address] [email or web address] Polycythemia Social History Tobacco Use Types Packs/Day Years [...] on file documented as of this encounter Results * US Abdomen Complete (07/10/2019 8:12 AM EDT) Anatomical Region Laterality Modality Abdomen Ultrasound 07/10/2019 11:2 1 AM EDT Impressions 07/10/2019 11:23 AM EDT *Limited due to body habitus.* 1. No findings to account for the patient's polycythemia. 2. Hepatic steatosis. POS [id number] Narrative 07/10/2019 11:23 AM EDT COMPARISON: None. ABDOMEN ULTRASOUND FINDINGS: *Limited due to body habitus.* Liver: Diffusely echogenic and sound attenuating. No masses or definite acute findings. Gallbladder/Biliary Tree: Gallbladder is normal. The common bile duct measures 4 mm which is normal. Pancreas: The pancreas is obscured by bowel gas. Kidneys: Normal. Spleen: Not well visualized. No definite pathologic findings or enlargement. Proximal abdominal aorta/IVC: Proximal IVC is unremarkable. Proximal aorta is not visualized. Procedure Note Maribel Duncan MD - 07/10/2019 COMPARISON: None. ABDOMEN ULTRASOUND FINDINGS: *Limited due to body habitus.* Liver: Diffusely echogenic and sound attenuating. No masses or definiteacute findings. Gallbladder/Biliary Tree: Gallbladder is normal. The common bile ductmeasures 4 mm which is normal. Pancreas: The pancreas is obscured by bowel gas. Kidneys: Normal. Spleen: Not well visualized. No definite pathologic findings orenlargement. Proximal abdominal aorta/IVC: Proximal IVC is unremarkable. Proximalaorta is not visualized. IMPRESSION: *Limited due to body habitus.* 1. No findings to account for the patient's polycythemia. 2. Hepatic steatosis. POS [id number] Erica Mas MD IM US ABDOMEN Final Resul t documented in this encounter Visit Diagnoses Diagnosis Polycythemia Polycythemia, secondary Polycythemia Polycythemia, secondary documented in this encounter Additional Health Concerns Infection Onset Date Last Indicated Resolved Time CoV-Risk Comment:Per note documentation 01/11/2021 01/11/2021 10:53 AM EDT documented as of this encounter Care Teams Textile Machinery Instructor Relationship Specialty Start Date End Date Erica Mas MD [address] [place] [address] [email or web address] PCP - General Internal Medicine 06/16/19 Polina Adam MD [address] [facility] [employer] [address] [email or web address] Primary Oncologist Hematology and Oncology 04/19/23 Matthew Mensah MBBS [address] [address] [email or web address] Primary Oncologist Medical Oncology 06/16/24 documented as of this encounter Additional Source Comments The information contained in this document represents components of the legal health record. It is not the complete legal health record.[facility]
--- OUTSIDE RECORDS SUMMARY | 2025-02-09 08:41 | XMS_ITS | Encounter Summary ---
Author Organization [facility] Address [address] [facility] [address] [place] [address] Phone Care Team Providers Care Insulation Worker Apprentice Name Role Phone Erica Mas MD Primary Care Provider Polina Adam MD Unavailable Matthew Mensah Unavailable [phone] Encounter Details Date Type Department Care Team (Late st Contact Info) Description 01/11/2021 Procedure Pass [facility], Ct Scan - [address] [address] Social History Tobacco Use Types Packs/Day Years [...] 9:21 AM EDT Francheska Torre RN * [place] Suicide Severity Rating Scale (Screener/Recent Self-Report) Question [...] documented as of this encounter Care Teams Insulation Worker Apprentice Relationship Specialty Start Date End Date Erica Mas MD [address] [place] [address] [email or web address] PCP - General Internal Medicine 06/16/19 Polina Adam MD [address] [address] Primary Oncologist Hematology and Oncology 04/19/23 Matthew Mensah MBBS [address] [address] [email or web address] Primary Oncologist Medical Oncology 06/16/24 documented as of this encounter Additional Source Comments The information contained in this document represents components of the legal health record. It is not the complete legal health record.[facility]
--- OUTSIDE RECORDS SUMMARY | 2025-02-09 08:41 | XMS_ITS | Encounter Summary ---
Author Organization [facility] Address [address] [place] [address] Phone Care Team Providers Care Lead Atg Developer Name Role Phone Erica Mas MD Primary Care Provider [phone] Polina Adam MD Unavailable Matthew Mensah [facility] [place] [place] Unavailable [phone] Encounter Details Date Type Department Care Team (Late st Contact Info) Description 02/10/2021 Procedure Pass [place] Admitting Dept - Virtual Department [address] [place] [address] Social History Tobacco Use Types Packs/Day Years [...] Diagnoses Not on filedocumented in this encounter Care Teams Lead Atg Developer Relationship Specialty Start Date End Date Erica Mas MD [address] [place] [address] PCP - General Internal Medicine 06/16/19 Polina Adam MD [address] [address] [email or web address] Primary Oncologist Hematology and Oncology 04/19/23 Matthew Mensah MBBS [address] [address] [email or web address] Primary Oncologist Medical Oncology 06/16/24 documented as of this encounter Additional Source Comments The information contained in this document represents components of the legal health record. It is not the complete legal health record.[facility]
--- OUTSIDE RECORDS SUMMARY | 2025-02-09 08:42 | XMS_ITS | Encounter Summary ---
Author Organization [facility] Address [address] [facility] [address] [place] [address] Phone Care Team Providers Care Dice Spotter Name Role Phone Erica Mas MD Primary Care Provider [phone] Polina Adam MD Unavailable [phone] Matthew Mensah Unavailable [phone] Encounter Details Date Type Department Care Team (Late st Contact Info) Description 11/05/2022 Procedure Pass [facility] Endoscopy Admitting Dept Virtual Department [address] [place] [address] Social History Tobacco Use Types Packs/Day Years Used Date Smoking Tobacco: Every Day Cigarettes 2 45 Smokeless Tobacco: Never Alcohol Use Standard Drinks/Week Comments Yes 0 (1 standard drink = 0.6 oz pur e alcohol) 2 a week Education Answer Date Recorded Are you interested in more education? Not on meir e 08/24/2022 Are you concerned about learning? Not on file 08/24/2022 No 08/24/2022 No 08/24/2022 Digital Access Answer Date Recorded No 09/22/2022 No 09/22/2022 Reliable internet access at home? Not on file 09/22/2022 Device with a working camera? Not on file Intimate Partner Violence Answer Date R ecorded Are you denied basic needs s uch as food, clothing, or medical care? No 11/05/2022 In the past 12 months have y ou been in a relationship with a person who hurts, threatens, or tries to control you? No 11/05/2022 Are you denied basic needs s uch as food, clothing, or medical care? No 11/05/2022 In the past 12 months have y ou been in a relationship with a person who hurts, threatens, or tries to control you? No 11/05/2022 Sex and Gender Information Value Date Recorded Sex Assigned at Male 01/11/2021 9:22 AM EDT Legal Sex Male 4:21 PM EST Gender Identity Male 01/11/2021 9:22 AM EDT Sexual Orientation Not on file documented as of this encounter Plan of Treatment Not on file documented as of this encounter Visit Diagnoses Not on filedocumented in this encounter Care Teams Dice Spotter Relationship Specialty Start Date End Date Erica Mas MD [address] [place], [place] [id number] [email or web address] PCP - General Internal Medicine 06/16/19 Polina Adam MD [facility] [address] [address] Primary Oncologist Hematology and Oncology 04/19/23 Matthew Mensah MBBS [address] [address] [email or web address] Primary Oncologist Medical Oncology 06/16/24 documented as of this encounter Additional Source Comments The information contained in this document represents components of the legal health record. It is not the complete legal health record.[facility]
--- OUTSIDE RECORDS SUMMARY | 2025-02-09 08:42 | XMS_ITS | Encounter Summary ---
Author Organization [facility] Address [address] [facility] [address] [place] [address] Phone Care Team Providers Care Energy Conservation Representative Name Role Phone Erica Mas MD Primary Care Provider Polina Adam MD Unavailable Matthew Mensah Unavailable [phone] Encounter Details Date Type Department Care Team (Late st Contact Info) Description 11/02/2022 Transcribe Orders Virtual Department [address] [place] [address] Nasrin Camara PA [address] [address] [email or web address] Social History Tobacco Use Types Packs/Day Years [...] on filedocumented in this encounter Care Teams Energy Conservation Representative Relationship Specialty Start Date End Date Erica Mas MD [address] [place] [address] [email or web address] PCP - General Internal Medicine 06/16/19 Polina Adam MD [address] [address] Primary Oncologist Hematology and Oncology 04/19/23 Matthew Mensah MBBS [address] [address] [email or web address] Primary Oncologist Medical Oncology 06/16/24 documented as of this encounter Additional Source Comments The information contained in this document represents components of the legal health record. It is not the complete legal health record.[facility]
--- OUTSIDE RECORDS SUMMARY | 2025-02-09 08:42 | XMS_ITS | Encounter Summary ---
Author Organization [facility] Address [address] [facility] [address] [place] [address] Phone Care Team Providers Care Pbx Mechanic Name Role Phone Erica Mas MD Primary Care Provider Polina Adam MD Unavailable [phone] Matthew Mensah Unavailable Encounter Details Date Type Department Care Team (Late st Contact Info) Description 04/17/2024 Procedure Pass [facility], Ct Scan - [address] [address] Social History Tobacco Use Types Packs/Day Years [...] on filedocumented in this encounter Care Teams Pbx Mechanic Relationship Specialty Start Date End Date Erica Mas MD [address] [place], [place] [phone] [email or web address] PCP - General Internal Medicine 06/16/19 Polina Adam MD [facility] [address] [address] Primary Oncologist Hematology and Oncology 04/19/23 Matthew Mensah MBBS [address] [address] [email or web address] Primary Oncologist Medical Oncology 06/16/24 documented as of this encounter Additional Source Comments The information contained in this document represents components of the legal health record. It is not the complete legal health record.[facility]
--- OUTSIDE RECORDS SUMMARY | 2025-02-09 08:42 | XMS_ITS | Clinical Summary ---
Author Organization [facility] Address [address] [address] Phone Care Team Providers Care Quantitative Manager Name Role Phone Erica Mas MD Primary Care Provider Polina Adam MD Unavailable [phone] Matthew Mensah [facility] Unavailable [phone] Allergies No known active allergies Medications dilTIAZem (CARDIZEM CD) 360 MG 24 hr capsule Take 1 capsule (360 mg total) by mouth daily. 90 capsule 3 0 Active Additional Information Patient taking differently:360 mg Oral Daily,Dose is 180 mg, Reported on 01/12/2021 apixaban (ELIQUIS) 5 mg tablet Take 5 mg by mouth 2 (two) times a day. Active furosemide (LASIX) 20 MG tablet Take 20 mg by mouth daily. Active fluticasone/ume clidin/vilanter (TRELEGY ELLIPTA INHL) Inhale into the lungs. Active albuterol 90 mcg/actuation inhaler Inhale 2 puffs into the lungs every 4 (four) hours as needed for wheezing. Active acetaminophen (TYLENOL) 325 mg tablet Take 2 tablets (650 mg total) by mouth every 6 (six) hours as needed for mild pain or fever. 0 1 Active traMADoL (ULTRAM) 50 mg tablet Take 1 tablet (50 mg total) by mouth every 6 (six) hours as needed for pain (specific location in comments). 20 tablet 1 Active MOUNJARO 2.5 mg/0.5 mL PnIj Inject 2.5 mg under the skin once a week. 4 Active Active Problems Patient Care Coordination No te Formatting of this note migh t be different from the original. Height 193 cm with boots taken by RB on 05/20/2023 Problem Noted Date Diagnosed Date Erythrocytosis 07/13/2024 Assessment & Plan (07/13/2024 8:45 AM EDT): IMPRESSION: Intermittent mild erythrocytosis secondary/reactive/compensatory in nature in the setting of COPD/obstructive sleep apnea.. Patient underwent extensive laboratory evaluation which was unremarkable. DISCUSSION: I discussed overall impression, natural history of the disease and further management in this regard. Patient underwent extensive laboratory evaluation including serum troponin level and JAK2 mutation analysis which was unremarkable. Erythrocytosis has been mild and intermittent in nature. It continues to be stable. There are no other CBCD abnormalities. All of which is reassuring and speaks against any underlying hematological disease/Voner disease process. I do not think any further hematology follow-up is necessary at this time in this regard. RECOMMENDATIONS: Follow-up with hematology on as-needed basis Thank you very much for allowing me to participate in this patient's care Urinary tract infection 01/12/2021 Assessment & Plan (01/13/2021 4:12 PM EDT): -Urine culture from left kidney obtained during cystoscopy now growing 10 200,000 CFU of E. coli. -Blood cultures no growth x 2 days -Urine culture with E. coli pansensitive as above. Plan -DC cefepime and Vanco as above. -Narrow antibiotic coverage to ceftriaxone. Chronic respiratory failure 01/12/2021 Assessment & Plan (01/13/2021 4:15 PM EDT): Patient has underlying PORTILLO and uses 5 L of oxygen via nasal cannula at home. He states that he usually uses the oxygen at night but sometimes during the day. Patient notes that he is at his baseline with regard to work of breathing. -Chest x-ray shows no acute abnormality. -CT abdomen was able to image lower lungs which were clear. No evidence of volume overload. Echo with normal ejection fraction no wall motion abnormality. Hypoxemia is likely due to PORTILLO and underlying COPD given long history of smoking. Patient also likely with obesity hypoventilation. Plan -Continue O2 supplementation to keep sats in the high 80s. -Avoid over oxygenation given history of COPD. - CPAP when asleep at home settings. -Smoking cessation encouraged and nicotine replacement therapy offered. Ureterolithiasis 01/11/2021 Assessment & Plan (01/12/2021 3:33 PM EDT): CT revealed left ureteral stone measuring 5 mm. -Patient underwent cystostomy with stent placement on the left by Dr. Charlton. No complaint of abdominal or flank pain at present. Plan -Patient will need outpatient follow-up with urology for stone removal/stent removal. -Opiate analgesia as needed for pain Atrial flutter with rapid ventricular response 0 01/11/2021 Assessment & Plan (01/13/2021 4:09 PM EDT): -Patient presented with A. fib and RVR. He did not take his regular Cardizem CD on the morning of admission. - heart rate has been difficult to control, ranging from 129-163, despite receiving his regular dose of diltiazem CD in the PACU therefore patient started on diltiazem drip. - He had a normal echo in June 2019. Patient was seen by cardiology who recommends continuing on IV Cardizem drip until infectious process resolves. -Telemetry reveals persistent A. fib with rates in the 120s with activity. -on Eliquis for anticoagulation. Plan -Increase Cardizem drip to 12.5 mg/h. Titrate to keep heart rates in the 90s to low 100s. Acute respiratory failure with hypoxia 1 PAF (paroxysmal atrial fibrillation) 08/04/2019 Assessment & Plan (08/04/2019 9:53 AM EDT): Currently normal sinus rhythm by his report by pulse examination. This patient had a monitor that we are digging up the results hopefully he will have all normal sinus rhythm on it and no evidence of atrial fibrillation. I will see him in 3 months time he will remain on Eliquis. I just reviewed this patient's loop monitor which shows 77% atrial flutter with an average heart rate of 94 bpm. I am going to double his Cardizem from 180 mg daily to 360 mg a day and will see him again in 1 month's time Benign essential hypertension 08/04/2019 Assessment & Plan (08/04/2019 9:18 AM EDT): Goal should be less than 130 mmHg. Asthma exacerbation with GLASS TECHNOLOGIST D (chronic obstructive pulmonary disease) 08/04/2019 Assessment & Plan (01/12/2021 3:22 PM EDT): Patient has markedly diminished breath sounds. No wheezes. No evidence of asthma exacerbation. -Continue oxygen support as outlined. -Albuterol MDI 4 puffs every 4 hours as needed for bronchospasm. -Resume Trelegy inhaler at discharge (I was unable to reconcile this evening). Assessment & Plan (08/04/2019 9:18 AM EDT): Resolved and asymptomatic at the present time Resolved Problems Problem Noted Date Diagnosed Date Resolved Date Severe sepsis 01/11/2021 01/14/2021 Assessment & Plan (01/13/2021 4:11 PM EDT): Resolving. Patient still with fevers up to 38.1. -Patient presented with tachycardia to 155, hypertension with blood pressure 138/107, leukocytosis and borderline blood pressure of 95/68 and lactic acidosis. He met the criteria for sepsis. -Patient was treated with IV fluids and IV antibiotics. 01/13 remains hemodynamically stable. No further tachycardia. Afebrile. WBC was up to 22.0 which could be expected post procedure now down to 14.67. -Urine cultures growing E. coli which is pansensitive. suspected abscess was secondary to urinary source and obstructing ureteral stone. -DC IV vancomycin -Narrow antibiotic coverage to ceftriaxone -Monitor hemodynamics. Immunizations Immunization Administration Dates Next Due Influenza Quadrivalent Prese rvative Free IM 01/14/2021(Deferred: Patient Refused) Family History Medical History Relation Comments Bone cancer Father No Known Problems Mother Relation Status Comments Father Mother Social History Tobacco Use Types Packs/Day Years Used Date Smoking Tobacco: Every Day Cigarettes 2 45 Smokeless Tobacco: Never Tobacco Cessation:Ready to Q uit: Not Asked; Counseling Given: Not Answered Alcohol Use Standard Drinks/Week Comments Yes 0 [...] AM EDT Sexual Orientation Not on file Last Filed Vital Signs Vital Sign Reading Time Taken Comments Blood Pressure 113/79 07/22/2024 12:56 PM EDT Pulse 86 07/22/2024 12:56 PM EDT Temperature 36.8 C (98.2 F) 07/13/2024 8:29 AM EDT Respiratory Rate 28 11/05/2022 8:46 AM EDT Oxygen Saturation 94% 07/22/2024 12:56 PM EDT Inhaled Oxygen Concentration - - Weight 164.2 kg (362 lb) 07/22/2024 12:56 PM EDT Height 193 cm (6' 3.98 ) 07/22/2024 12:56 PM EDT Body Mass Index 44.08 07/22/2024 12:56 PM EDT Plan of Treatment Health Maintenance Due Date Last Done Comments Adult Td,Tdap Booster 1960 LIPID PANEL 1961 DEPRESSION SCREENING 1973 HEPATITIS C SCREENING 1979 HIV ONE-TIME SCREENING (18-65 YEARS) 1979 PNEUMOCOCCAL VACCINES (50+ years) (1 of 2 - PCV) 1980 COLOGUARD 2006 FIT TEST 2006 FOBT 2006 SIGMOIDOSCOPY 2006 VIRTUAL COLONOSCOPY 2006 LUNG CANCER SCREENING (LDCT Only) 2011 RSV VACCINE (1 - Risk 50-74 years 1-dose series) 2011 ZOSTER VACCINES (1 of 2) 2011 CREATININE LEVEL 05/20/2024 05/20/2023, , 01/13/2021, Additional history exists INFLUENZA VACCINE (#1) 2024 COVID-19 VACCINE ( season) 2024 04/27/2021, 08/17/2020, 07/27/2020 BLOOD PRESSURE 01/22/2025 07/22/2024 SMOKING Hx and SMOKELESS TOBACCO SCREENING 07/13/2025 07/13/2024 SCREENING FOR DIABETES 05/20/2026 05/20/2023 COLONOSCOPY 11/05/2032 11/05/2022 COLORECTAL CANCER SCREENING 11/05/2032 HEPATITIS A VACCINES Aged Out No long er eligible based on patient's age to complete this topic HIB VACCINES Aged Out No longer eligi ble based on patient's age to complete this topic MENINGOCOCCAL VACCINES (ACWY) Aged Out No longer eligible based on patient's age to complete this topic MENINGOCOCCAL VACCINES (B) Aged Out N o longer eligible based on patient's age to complete this topic Medical Devices Implanted Type Area City Auditor Device Identifier Shelf Expiration Date Model / Serial / Lot Loop Polaris [id number] Stent Ureteral Standard Shaft/Straight Tip - [id number] Implanted:Qty: 1 on 01/11/2021 by Junior Charlton MD at [facility] Left: Ureter [employer] 08/31/2024 [id number] / / [id number] Stent Ureteral 6fr 22 To 30cm Stretch Coated Linda - [id number] Implanted:Qty: 1 on 02/10/2021 by Junior Charlton MD at [facility] Left: Ureter [employer] 11/23/2023 [id number] / / [id number] Procedures Procedure Name Priority Date/Time Associated Diagnosis Comments COMPREHENSIVE METABOLIC PANEL Routine 05/20/2023 10:33 AM EST Polycythemia vera ENDOSCOPY, COLON 11/05/2022 7:54 AM EDT from Last 3 Months or Most Recently Relevant to Health Maintenance Results * Comprehensive metabolic panel (05/20/2023 10:33 AM EST) SODIUM 141 133 - 146 mmol/L [facility] POTASSIUM 4.4 3.3 - 5.1 mmol/L [facility] Comment:Specimen slightly he molyzed, result may be falsely elevated. CHLORIDE 101 96 - 108 mmol/L [facility] CO2 30 21 - 35 mmol/L [facility] BUN 19 6 - 19 mg/dL [facility] CREATININE 1.00 0.5 - 1.5 mg/dL [facility] GLUCOSE 93 70 - 99 mg/dL [facility] ALBUMIN 4.1 3.9 - 4.8 g/dL [facility] TOTAL PROTEIN 7.2 6.5 - 8.0 g/dL [facility] CALCIUM 9.6 8.4 - 10.3 mg/dL [facility] ALKALINE PHOSPHATASE 94 39 - 117 U/L [facility] TOTAL BILIRUBIN 0.7 0.0 - 1.2 mg/dL [facility] AST 19 0 - 37 U/L [facility] ALT 17 0 - 40 U/L [facility] GLOBULIN 3.1 1 - 4.8 g/dL [facility] EGFR 85 >59 mL/min/1.7 3m2 [facility] Comment:Estimated glomerular filtration rate calculated using the CKD-EPI refit equation. ANION GAP 14 10 - 20 mmol/L [facility] Blood 05/20/2023 10:3 3 AM EST 05/20/2023 10:55 AM EST us Polina Adam MD LAB BLOOD ORDERABLES F inal Result [facility] [address] [place] [address] * ENDOSCOPY, COLON (11/05/2022 7:54 AM EDT) Narrative Transcriptions Vinay Noble MD - 11/05/2022 7:54 AM EDT [facility] Patient Name: Rohith Mann Attending MD:: VINAY NOBLE MD, Procedure Date: 11/05/2022 7:54 AM Date of : 1960 Age: 62 Admit Type: Outpatient Gender: Male Room: [place] [address] Referring MD: ERICA MAS MD Exam Type: Colonoscopy Indications: Screening for colorectal malignant neoplasm, Thisis the patient's first colonoscopy Medications: Monitored Anesthesia Care Procedure: Pre-Anesthesia Assessment: - Prior to the procedure, a History and Physicalwas performed, and patient medications and allergieswere reviewed. The patient's tolerance of previous anesthesia was also reviewed. The risks andbenefits of the procedure and the sedation options and risks were discussed with the patient. All questions were answered, and informed consent was obtained. Prior Anticoagulants: The patient has taken Eliquis (apixaban), last dose was 3 days prior toprocedure. ASA Grade Assessment: IV - A patient with severe systemic disease that is a constant threat to life. After reviewing the risks and benefits, the patient was deemed in satisfactory condition to undergo the procedure. Informed consent was obtained from the patientafter discussion of the indications, limitations, alternatives, benefits, and risks of the procedure. Risks specifically discussed include but are not limited to medication reactions, missed lesions, bleeding, perforation, or the need for emergent surgery. Throughout the procedure, the patient's blood pressure, pulse, end-tidal CO2, and oxygensaturations were monitored continuously. The Olympus adult variable colonoscope [id number] #[id number] was introduced through the anus and advanced to the cecum, identified by the appendiceal orifice, ileocecal valve and palpation. The colonoscopy was somewhat difficult due to a redundant colon, the patient's body habitus and the patient's medical instability. The patient tolerated the procedure.The quality of the bowel preparation was adequate to identify polyps. The ileocecal valve, appendiceal orifice, and rectum were photographed. The qualityof the bowel preparation was adequate to identifypolyps. Complications: No immediate complications. Estimated blood loss: Minimal. Findings: The perianal and digital rectal examinations were normal. Pertinent negatives include normalsphincter tone. A few small-mouthed diverticula were found in the sigmoid colon and descending colon. Three sessile polyps were found in the transverse colon. The polyps were 4 to 7 mm in size. Thesepolyps were removed with a cold snare. Resection was complete, but the polyp tissue was only partially retrieved (2 of 3 polyps retrieved). Retroflexion in the right colon was performed. Non-bleeding internal hemorrhoids were found during retroflexion. The hemorrhoids were moderate. The exam was otherwise without abnormality ondirect and retroflexion views. Impression: - Diverticulosis in the sigmoid colon and in the descending colon. - Three 4 to 7 mm polyps in the transverse colon, removed with a cold snare. Complete resection.Partial retrieval. - Non-bleeding internal hemorrhoids. - The examination was otherwise normal on directand retroflexion views. Recommendation: - Resume Eliquis (apixaban) at prior dosetomorrow. - I will send results of your biopsy to you andyour referring physician or provider. If you do notreceive notification within 3 weeks, please call ouroffice. - Repeat colonoscopy in 5 years for surveillancebased on pathology results. VINAY NOBLE MD 11/05/2022 8:32:28 AM This report has been signed electronically. Number of Addenda: 0 Note Initiated On: 11/05/2022 7:54 AM Procedure Code(s): --- Professional --- 81316, Colonoscopy, flexible; with removal of tumor(s), polyp(s), or other lesion(s) by snare technique --- Technical --- 07010, Colonoscopy, flexible; with removal of tumor(s), polyp(s), or other lesion(s) by snare technique Diagnosis Code(s): --- Professional --- Z12.11, Encounter for screening for malignantneoplasm of colon K64.8, Other hemorrhoids D12.3, Benign neoplasm of transverse colon (hepatic flexure or splenic flexure) K57.30, Diverticulosis of large intestine without perforation or abscess without bleeding --- Technical --- Z12.11, Encounter for screening for malignantneoplasm of colon K64.8, Other hemorrhoids D12.3, Benign neoplasm of transverse colon (hepatic flexure or splenic flexure) K57.30, Diverticulosis of large intestine without perforation or abscess without bleeding CPT copyright 2021 [employer]. All rights reserved. The codes documented in this report are preliminary and upon river rat reviewmay be revised to meet current compliance requirements. Procedure Date: 11/05/2022 7:54:[address] [place] [id number] Erica Mas MD GI PROCEDURE ORDERABLES Fin al Result from Last 3 Months or Most Recently Relevant to Health Maintenance Insurance [facility] [place] [address] [address] [place] [address] [place] [address] [facility] [place] [address] Advance Directives For more information, please contact: [phone] (9AM - 5PM [facility], Saturday-Saturday) * Full Code (Latest Code Status on File) Date Activated Date Inactivated Comments 01/11/2021 7:52 PM Question Answer Comments Code Status Confirmed With: Patient Care Teams Quantitative Manager Relationship Specialty Start Date End Date Erica Mas MD [address] [place] [id number] [email or web address] PCP - General Internal Medicine 06/16/19 Polina Adam MD [facility] [address] [address] [email or web address] Primary Oncologist Hematology and Oncology 04/19/23 Matthew Mnesah MBBS [address] [address] [email or web address] Primary Oncologist Medical Oncology 06/16/24 Additional Source Comments The information contained in this document represents components of the legal health record. It is not the complete legal health record.[facility]
== END 2025-02-09 08:47 | disposition home or self-care (01) ==
LOC: HO.HPS 08:24
PROVIDERS: PCP Internal Medicine; Visit Provider Hospitalist
DX: G47.33 Obstructive sleep apnea (adult) (pediatric) (principal); J96.11 Chronic respiratory failure with hypoxia; F17.200 Nicotine dependence, unspecified, uncomplicated; J41.0 Simple chronic bronchitis; I50.9 Heart failure, unspecified
CPT/HCPCS: 99214; G2211